=== PATIENT | female | born 2000 | race African-American/Black ===

== ENCOUNTER → 2022-01-01 | Emergency (ER) | payer BC ==
[~2022-01-01] VITALS: Ht 182.9 cm; Wt 72.6 kg
[~2022-01-01] MED LIST: KETOROLAC TROMETHAMINE INJ 30 MG/ML VIAL ONE; KETOROLAC TROMETHAMINE INJ 60 MG/2 ML VIAL IM ONE; NAPR-1164 PO
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
--- NOTE | 2022-01-01 21:13 | NUR ---
WAIVER SIGNED AND FILED
--- NOTE | 2022-01-01 21:34 | NUR ---
DIRECTOR OF HEALTH EDUCATION CALLED AND NOTIFIED
--- NOTE | 2022-01-01 21:46 | NUR ---
LANGUAGE ARTS TEACHER AT BEDSIDE
--- NOTE | 2022-01-01 22:37 | NUR ---
DISCHARGE PAPERWORK GIVEN , PT LRFT IN STABLE CONDITION
[2022-01-01 22:39] VITALS: BP 136/79
== END | disposition home or self-care (01) ==
LOC: ER 20:16
DX: S80.02XA Contusion of left knee, initial encounter (principal); S50.311A Abrasion of right elbow, initial encounter; V89.2XXA Person injured in unspecified motor-vehicle accident, traffic, initial encounter; Y93.89 Activity, other specified; Y92.89 Other specified places as the place of occurrence of the external cause; Y99.8 Other external cause status
CPT/HCPCS: 73564; 96372; 99283; J1885

== ENCOUNTER 2022-01-13 22:37 | Emergency (ER) | payer BC ==
[~2022-01-13] VITALS: Ht 182.9 cm; Wt 69.9 kg
[~2022-01-13 22:37] MED LIST changes: -KETOROLAC TROMETHAMINE INJ 30 MG/ML VIAL ONE; -KETOROLAC TROMETHAMINE INJ 60 MG/2 ML VIAL IM ONE
[2022-01-14 00:33] VITALS: BP 131/61
== END 2022-01-14 00:40 | disposition home or self-care (01) ==
LOC: ER 22:42
DX: S83.92XA Sprain of unspecified site of left knee, initial encounter (principal); Z79.1 Long term (current) use of non-steroidal anti-inflammatories (NSAID); V89.2XXA Person injured in unspecified motor-vehicle accident, traffic, initial encounter; Y93.89 Activity, other specified; Y92.89 Other specified places as the place of occurrence of the external cause; Y99.8 Other external cause status